=== PATIENT | female | born 1985 | race Two or more races ===

== ENCOUNTER 2022-06-21 02:39 | Emergency (ER) | payer OTHER ==
[~2022-06-21] VITALS: Ht 172.7 cm; Wt 81.2 kg
[2022-06-21] MEDS ORDERED: MORPHINE SULFATE INJ 4 MG/ML DISP.SYRIN ONE (03:10)
[2022-06-21] MEDS ORDERED: ONDANSETRON HCL/PF 4 MG/2 ML VIAL ONE (03:10)
[2022-06-21 03:28] LABS: BASOPHILS % (AUTO) 0.6 % (0.0-2.0); EOSINOPHILS % (AUTO) 0.9 % (0.0-6.0); HEMATOCRIT 30 % (33-45); HEMOGLOBIN 9.6 g/dL (11.5-14.8); LYMPHOCYTES # (AUTO) 1.9 K/uL (0.8-4.8); LYMPHOCYTES % (AUTO) 25.8 % (20.0-44.0); MEAN CORPUSCULAR HGB CONC 32 g/dl (31.0-36.0); MEAN CORPUSCULAR VOLUME 76 fL (82-100); MONOCYTES # (AUTO) 0.5 K/uL (0.1-1.30); NEUTROPHILS # (AUTO) 4.8 K/uL (1.8-8.9); NEUTROPHILS % (AUTO) 65.7 % (43.0-81.0); PLATELET COUNT (AUTO) 365 K/uL (150-450); RED BLOOD CELL COUNT(AUTO) 3.94 MIL/uL (4.0-5.2); WHITE BLOOD COUNT (AUTO) 7.3 K/uL (4.3-11.0)
[2022-06-21] MEDS ORDERED: ONDANSETRON HCL/PF - ER 4 MG/2 ML VIAL IV ONE (03:30)
[2022-06-21] MEDS ORDERED: IV NS 0.9% 1,000 ML BAG IV ONE (03:30)
[2022-06-21] MEDS ORDERED: MORPHINE SULFATE INJ 2 MG/ML DISP.SYRIN IV ONE (03:30)
--- NOTE | 2022-06-21 03:32 | NUR ---
[id number] c/o abd pain 2nd hernia. Patient unable to push hernia back. On room air, breathing normally and unlabored. Connected to the monitor and pulse ox. kept comfortable, will continue to monitor accordingly.
[2022-06-21] MEDS ORDERED: IOHEXOL-300 100 ML VIAL IV ONE (03:45)
[2022-06-21] MEDS ORDERED: IV NS 0.9% 250 ML IV ONE (03:45)
[2022-06-21 03:49] LABS: CALCIUM, SERUM 8.6 mg/dL (8.5-10.1); CREATININE 0.6 mg/dL (0.6-1.3); POTASSIUM 3.3 mmol/L (3.5-5.1)
[2022-06-21 03:56] LABS: ALBUMIN 2.9 g/dL (3.4-5.0); BILIRUBIN,DIRECT 0.1 mg/dL (0.0-0.2); BILIRUBIN,TOTAL 0.2 mg/dL (0.2-1.0); TOTAL PROTEIN, SERUM 7.2 g/dL (6.4-8.2)
[2022-06-21 04:22] LABS: BILIRUBIN,URINE SMALL (NEGATIVE); COLOR,URINE YELLOW (YELLOW); LEUKOCYTE ESTERASE ,URINE NEGATIVE (NEGATIVE); NITRITE, URINE NEGATIVE (NEGATIVE); PROTEIN,URINE TRACE mg/dl (NEGATIVE); UGLUCOSE NEGATIVE (NEGATIVE); UROBILINOGEN,URINE 0.2 EU/dL (0.2)
[2022-06-21] MEDS ORDERED: OMEP20TA5 PO (06:07)
[2022-06-21] MEDS ORDERED: ONDA4TAB5 PO (06:07)
[2022-06-21 06:23] VITALS: BP 101/62
--- NOTE | 2022-06-21 06:23 | NUR ---
Patient discharged to home in stable condition. Written and verbal after care instructions given. Patient verbalizes understanding of instruction.IV removed. Catheter intact and site benign. Pressure and 4x4 applied to site. No bleeding noted.Pt ambulatory with a steady gait
--- NOTE | 2022-06-21 07:37 | NUR ---
REPORT RECEIVED FROM BABITA HURTADO.
--- NOTE | 2022-06-21 07:50 | NUR ---
Patient discharged to home in stable condition. Written and verbal after care instructions given. Patient verbalizes understanding of instruction.
== END 2022-06-21 09:29 | disposition home or self-care (01) ==
LOC: ER 02:41
DX: O26.899 Other specified pregnancy related conditions, unspecified trimester (principal); K43.9 Ventral hernia without obstruction or gangrene; D64.9 Anemia, unspecified; F17.200 Nicotine dependence, unspecified, uncomplicated; Z3A.00 Weeks of gestation of pregnancy not specified; Z79.899 Other long term (current) drug therapy
CPT/HCPCS: 99284; 96374; 96361; 96375; 76815; 85025; 80048; 83690; 80076; 84703; 81003; 36415; 84702; J2270; J2405; J7030; J7050; Q9967